=== PATIENT | male | born 1950 | race Caucasian/White ===

== ENCOUNTER 2022-12-10 03:22 | Outpatient (CLI) | payer MEDICARE, BC, SELFPAY ==
[2022-12-10 12:49] LABS: Abs Immature Grans 0.02 10^3/uL (0.0-0.06); Absolute Basophil Count 0.03 10^3/uL (0.0-0.2); Absolute Eosinophil Count 0.07 10^3/uL (0.0-0.7); Absolute Monocyte Count 0.47 10^3/uL (0.1-0.8); Absolute Neutrophil Count 5.23 10^3/uL (1.2-6.7); Basophils % 0.4; HCT 46.1 % (40.0-50.0); HGB 15.6 g/dL (13.5-17.5); Immature Grans % 0.3; Lymphocytes % 15.9; MCH 33.1 pg (27.0-33.0); MCHC 33.8 % (32.0-36.0); MCV 98 fL (80-95); Monocytes % 6.8; Neutrophils % 75.6; Platelet Count 191 10^3/uL (130-400); RBC 4.71 10^6/uL (4.36-5.78); RDW 11.9 % (11.8-14.1); RDW-SD 43.2 fL; WBC 6.92 10^3/uL (4.4-10.8)
[2022-12-10 13:07] LABS: ALT 39 U/L (16-63); AST 27 U/L (15-37); Albumin 4.1 g/dL (3.4-5.0); Alkaline Phosphatase 80 U/L (46-116); Anion Gap 6.8 mmol/L (3-11); BUN 19 mg/dL (7-18); Bilirubin, Total 0.6 mg/dL (0.2-1.0); CO2 27.2 mmol/L (21.0-32.0); Calcium 9.6 mg/dL (8.5-10.1); Chloride 107 mmol/L (98-107); Estimated GFR 79.97 (mL/min/1.73m2); Glucose 139 mg/dL (74-106); Potassium 3.9 mmol/L (3.5-5.1); Sodium 141 mmol/L (136-145); Total Protein 7.2 g/dL (6.4-8.2)
[2022-12-11 11:24] LABS: PSA, Ultrasensitive 18.5 ng/mL (<= 6.5)
[2022-12-14 17:05] LABS: Testosterone, Total 363 ng/dL (240-950)
== END 2022-12-10 03:23 | disposition home or self-care (01) ==
PROVIDERS: Visit Provider Radiology Radiation Oncology
DX: C61 Malignant neoplasm of prostate (principal)
CPT/HCPCS: 36415; 80053; 84153; 84403; 85025